=== PATIENT | male | born 1985 | race Two or more races ===

== ENCOUNTER 2020-09-26 20:29 | Emergency (ER) | payer OTHER, SELFPAY ==
--- NOTE | 2020-09-26 | ECG_ITS ---
Test Reason : CP Blood Pressure : / mmHG Vent. Rate : 075 BPM Atrial Rate : 075 BPM P-R Int : 144 ms QRS Dur : 092 ms QT Int : 356 ms P-R-T Axes : 055 069 038 degrees QTc Int : 397 ms Normal sinus rhythm Normal ECG When compared with ECG of 16-NOV-2017 17:56, No significant change was found Referred By: Generic ED Physician Electronically Signed By:SERINA ALCALA MD
--- NOTE | ~2020-09-26 | XR_ITS ---
EXAMINATION: PORTABLE CHEST 1 VIEW CLINICAL INFORMATION: DYSPNEA . COMPARISON: No recent pertinent prior studies are available for comparison. TECHNIQUE: Portable frontal view of the chest was obtained. FINDINGS: The lungs are mildly hypoexpanded. No focal infiltrate, effusion, edema, or pneumothorax. Cardiac and mediastinal silhouettes are within normal limits for technique. No acute bony abnormality seen. XR/XR chest 1V IMPRESSION: No evidence of acute disease.
[2020-09-26 21:34] VITALS: BP 123/66; PULSE 70; RESP 18; TEMP 36.8; O2SAT 96; BMI 54.2
[2020-09-26 21:39] VITALS: BMI 47.2
[2020-09-26 23:01] LABS: Basophils Absolute Auto 0.1 X10*3/uL (0.0-0.2); Basophils Percent Auto 0.5 % (0-2); Eosinophils Absolute Auto 0.5 X10*3/uL (0.0-0.4); Eosinophils Percent Auto 3.6 % (0-4); Hematocrit 36.4 % (42-52); Hemoglobin 11.4 g/dl (14.0-18.0); Imm Gran Abs Auto 0.06 X10*3/uL (0.00-0.03); Imm Gran Pct Auto 0.5 % (0.0-0.4); Lymphocytes Percent Auto 48.4 % (20-40); MANUAL DIFF FLAG SCAN; Mean Corpuscular HGB Conc 31.3 g/dl (31.0-36.0); Mean Corpuscular Hemoglobin 20.1 pg (27.0-33.0); Mean Platelet Volume 11.1 fL (9.4-12.4); Monocytes Absolute Auto 1.2 X10*3/uL (0.1-1.2); Monocytes Percent Auto 9.4 % (2-11); Neutrophils Absolute Auto 4.7 X10*3/uL (2.0-8.3); Neutrophils Percent Auto 37.6 % (45-73); Platelet Count 312 X10*3/uL (160-400); Red Blood Count 5.67 X10*6/uL (4.60-5.80); Red Cell Distribution Width 18.7 % (11.0-16.0); SCAN SMEAR FLAG 1; White Blood Count 12.4 X10*3/uL (4.8-10.8)
[2020-09-26 23:25] LABS: Anion Gap 14 (12-20); Blood Urea Nitrogen 7 mg/dL (9-16); Calcium 9.7 mg/dL (8.4-10.2); Carbon Dioxide 24 mmol/L (22-29); Chloride 108 mmol/L (96-108); Creatinine Clr Calc Pharmacy 187.8; Estimated Glomerular Filt Rate > 60; Glucose Random 106 mg/dL (60-115); Potassium 4.2 mmol/L (3.3-5.1); Sodium 142 mmol/L (135-145)
[2020-09-26 23:30] LABS: Mean Corpuscular Volume 64.2 fL (80-98)
[2020-09-26 23:35] LABS: B Type Natriuretic Peptide 11 pg/mL (<100); Troponin-I High Sensitivity < 3.5 ng/L (<3.5-35.0)
[2020-09-26 23:51] LABS: SLIDE REVIEW VERIFIED
[2020-09-27 02:27] VITALS: BP 126/65; PULSE 65; RESP 19; O2SAT 97
--- NOTE | 2020-09-27 02:31 | ED_ITS ---
HPI - SOB/Dyspnea General Chief Complaint: Dyspnea Stated Complaint: cp,Sob Time Seen by Provider: 09/27/20 02:31 Source: patient Mode of arrival: ambulatory History of Present Illness HPI Narrative: 34-year-old male without significant past medical history presents with sharp chest pain radiates in to left neck and shoulder the patient states has resolved accompanied by shortness of breath without any history of asthma. Otherwise, he denies any fever, chills, nausea, vomiting, abdominal pain, and symptoms. Related Data Allergies Allergy/AdvReac Type Severity Reaction Status Date / Time ibuprofen [From MOTRIN] Allergy Unknown HIVES Verified 09/26/20 21:31 Review of Systems Review of Systems: Pertinent positives and negatives as stated in HPI 10 point review systems otherwise negative. PMFSH Past Medical History Source: nursing notes reviewed Medical History No known health problems Social History Social History Advance Directives: No Advance Directives Information Provided: No Physical Exam Vital Signs: Vital Signs: Last Vital Signs Temp 98.3 F 09/26/20 21:34 Pulse 65 09/27/20 02:27 Resp 19 09/27/20 02:27 BP 126/65 09/27/20 02:27 Pulse Ox 97 09/27/20 02:27 Body Mass Index 47.2 VITAL SIGNS: Reviewed. GENERAL: Well developed, well nourished, in no acute distress. HEAD: Normocephalic/atraumatic EYES: PERRLA, EOMI NOSE: Nares patent bilateral OROPHARYNX: no oral lesions noted, posterior pharynx clear NECK: Supple, no adenopathy LUNGS: Normal breath sounds. No adventitious sounds or accessory muscle use. SpO2<97> CARDIOVASCULAR: Regular rate and rhythm without noted murmurs ABDOMEN: Soft, non-tender, non-distended with bowel sounds. NEUROLOGIC: Alert and oriented x 4. Course Course Course Narrative: This is a 34-year-old male with history and clinical presentation suggestive of possible costochondritis/musculoskeletal etiology given the quality of the pain low suspicion for PE or pneumonia given the absence of fevers. On review of all investigations there are no acute findings other than a lymphocytosis. Patient informed of all findings and instructed to follow-up with his primary care provider for further evaluation. MDM - SOB/Dyspnea Lab Data Result diagrams: 09/26/20 22:42 09/26/20 22:42 Labs: Lab Results 09/26/20 09/26/20 09/26/20 Range/Units 22:42 22:42 22:42 WBC 12.4 H (4.8-10.8) X10*3/uL RBC 5.67 (4.60-5.80) X10*6/uL Hgb 11.4 L (14.0-18.0) g/dl Hct 36.4 L (42-52) % MCV 64.2 L (80-98) fL MCH 20.1 L (27.0-33.0) pg MCHC 31.3 (31.0-36.0) g/dl RDW 18.7 H (11.0-16.0) % Plt Count 312 (160-400) X10*3/uL MPV 11.1 (9.4-12.4) fL Immature Gran % (Auto) 0.5 H (0.0-0.4) % Neut % (Auto) 37.6 L (45-73) % Lymph % (Auto) 48.4 H (20-40) % [place] % (Auto) 9.4 (2-11) % Eos % (Auto) 3.6 (0-4) % Baso % (Auto) 0.5 (0-2) % Lymph # (Auto) 6.0 H (1.2-4.9) X10*3/uL [place] # (Auto) 1.2 (0.1-1.2) X10*3/uL Eos # (Auto) 0.5 H (0.0-0.4) X10*3/uL Baso # (Auto) 0.1 (0.0-0.2) X10*3/uL Abs Immat Gran (auto) 0.06 H (0.00-0.03) X10*3/uL Absolute Neuts (auto) 4.7 (2.0-8.3) X10*3/uL Absolute Nucleated RBC 0.000 (0.0-0.012) X10*3/uL Nucleated RBC % (auto) 0.0 (0.0-0.2) /100WBC Smear Tech's Comments VERIFIED D-Dimer < 200 NG/ML Hold Blue Top SEE NOTE Sodium 142 (135-145) mmol/L Potassium 4.2 (3.3-5.1) mmol/L Chloride 108 (96-108) mmol/L Carbon Dioxide 24 (22-29) mmol/L Anion Gap 14 (12-20) BUN 7 L (9-16) mg/dL Creatinine 0.86 (0.5-1.4) mg/dL Estim Creat Clear Calc 187.8 Estimated GFR > 60 Random Glucose 106 (60-115) mg/dL Calcium 9.7 (8.4-10.2) mg/dL Troponin I High Sens (<3.5-35.0) ng/L B-Natriuretic Peptide (<100) pg/mL COVID-19 ([facility]) (Negative) COVID-19 Clin Com 09/26/20 09/27/20 Range/Units 22:42 02:44 WBC (4.8-10.8) X10*3/uL RBC (4.60-5.80) X10*6/uL Hgb (14.0-18.0) g/dl Hct (42-52) % MCV (80-98) fL MCH (27.0-33.0) pg MCHC (31.0-36.0) g/dl RDW (11.0-16.0) % Plt Count (160-400) X10*3/uL MPV (9.4-12.4) fL Immature Gran % (Auto) (0.0-0.4) % Neut % (Auto) (45-73) % Lymph % (Auto) (20-40) % [place] % (Auto) (2-11) % Eos % (Auto) (0-4) % Baso % (Auto) (0-2) % Lymph # (Auto) (1.2-4.9) X10*3/uL [place] # (Auto) (0.1-1.2) X10*3/uL Eos # (Auto) (0.0-0.4) X10*3/uL Baso # (Auto) (0.0-0.2) X10*3/uL Abs Immat Gran (auto) (0.00-0.03) X10*3/uL Absolute Neuts (auto) (2.0-8.3) X10*3/uL Absolute Nucleated RBC (0.0-0.012) X10*3/uL Nucleated RBC % (auto) (0.0-0.2) /100WBC Smear Tech's Comments D-Dimer NG/ML Hold Blue Top Sodium (135-145) mmol/L Potassium (3.3-5.1) mmol/L Chloride (96-108) mmol/L Carbon Dioxide (22-29) mmol/L Anion Gap (12-20) BUN (9-16) mg/dL Creatinine (0.5-1.4) mg/dL Estim Creat Clear Calc Estimated GFR Random Glucose (60-115) mg/dL Calcium (8.4-10.2) mg/dL Troponin I High Sens < 3.5 (<3.5-35.0) ng/L B-Natriuretic Peptide 11 (<100) pg/mL COVID-19 ([facility]) Negative (Negative) COVID-19 Clin Com See Note Discharge Plan Discharge Clinical Impression: Atypical chest pain Patient Disposition: Home, Self-Care Instructions: Chest Wall Pain (ED) Additional Instructions: Please follow-up with your primary care provider in the next 2-3 days for further outpatient evaluation and assessment. Return to the emergency department if you develop any worsening of your symptoms. Referrals: Physician,Unknown [Primary Care Provider] - 2 days
[2020-09-27 03:01] LABS: D Dimer < 200 NG/ML
[2020-09-27 03:04] LABS: COVID-19 Test Negative (Negative); IDNOW Serial# 9DD0AD1C
[2020-09-27] MEDS: Albuterol Sulfate 90 MCG 8 GM INHALER 4 PUFF INHALE (04:20)
[2020-09-27 04:22] VITALS: PULSE 56; O2SAT 97
[2020-09-27] MEDS: Lidocaine HCl Viscous 2 % 15 ML SOLUTION 10 ML MUCOUS MEM (04:41)
[2020-09-27] MEDS: Magnesium Hydrox/Alum Hydrox 30 ML ORAL.SUSP PO (04:42)
== END 2020-09-27 05:00 | disposition home or self-care (01) ==
PROVIDERS: Emergency Provider Student in an Organized Health Care Education/Training Program
DX: R07.89 Other chest pain (principal); Z20.822 Contact with and (suspected) exposure to COVID-19
CPT/HCPCS: 36415; 71045; 80048; 83880; 84484; 85025; 85379; 87635; 93005; 94664; 99284

== ENCOUNTER 2021-12-27 16:57 | Emergency (ER) | payer BC, OTHER, SELFPAY ==
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
[2021-12-27 19:39] VITALS: BP 148/80; PULSE 86; RESP 18; TEMP 36.5; O2SAT 100; BMI 47.5
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
[2021-12-27 21:20] VITALS: BP 140/91; PULSE 88; RESP 18; TEMP 36.7; O2SAT 97
[2021-12-27] MEDS: oxyCODONE HCl Immed Release 5 MG TABLET PO (21:27)
[2021-12-27] MEDS: Acetaminophen 325 MG TABLET 975 MG PO (21:27)
[2021-12-27] MEDS: Diphth,Pertus(ACell),Tet Adult 0.5 ML SYRINGE IM (21:28)
[2021-12-27] MEDS: Bacitracin Oint 14 GM TUBE 1 APPL TOPICAL (21:31)
== END 2021-12-27 21:32 | disposition home or self-care (01) ==
PROVIDERS: Emergency Provider Emergency Medicine
DX: S50.812A Abrasion of left forearm, initial encounter (principal); S70.312A Abrasion, left thigh, initial encounter; V29.40XA Motorcycle driver injured in collision with unspecified motor vehicles in traffic accident, initial encounter; Y93.9 Activity, unspecified; Y92.410 Unspecified street and highway as the place of occurrence of the external cause; Y99.9 Unspecified external cause status
CPT/HCPCS: 73060; 73090; 90471; 90715; 99283

== ENCOUNTER → 2023-08-08 10:20 | Outpatient (BNVA) | payer SELFPAY | PROVIDERS: PCP Physician Assistant ==

== ENCOUNTER 2023-10-10 13:24 | Outpatient (AMB) | payer OTHER, BC, SELFPAY ==
[2023-10-10 13:28] VITALS: BP 118/68; PULSE 73; O2SAT 98; BMI 42.4
--- NOTE | 2023-10-10 13:28 | MHC.PC.OV ---
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 Transferring care from [facility]. Medical records have been requested today. 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 Previously was seen at [facility]. He has a past medical history significant for obstructive sleep apnea, migraines, obesity. HAS MULTIPLE COMPLAINTS TODAY .. Obstructive sleep apnea: He does have a CPAP machine though does not use it due to mask irritation. He reports he continues to have trouble sleeping .. Obesity: He reports he has gained a lot of weight due to overeating secondary to his depression and anxiety. He reports he is going through some personal issues that have caused him a lot more anxiety and depression per has not interested in medication for his mental health. .. GERD: Reports he has been having lot of GERD even wake him up in the night with burning in his chest. Has used omeprazole in the past though it was not effective. He is interested in liquid form of medication to help him as he not interested in pills. ,, Lumbar radiculopathy: He does report 2019 having work-related injury injuring his back. He does report getting physical therapy and x-rays at the time reports normal findings. He can not recall physical therapy helping at all. He does not take any NSAIDs or Tylenol for his pain. .. Generalized anxiety disorder/ major depressive disorder: He does suffer from anxiety and depression which has been existing condition for him for quite awhile. He does report going through some personal issues and some marital problems. He does report eating as a coping mechanism which has caused him to gain weight. .. Migraines: He reports he continues to suffer from migraines that are fairly debilitating. He reports he has tried sumatriptan in the past without significant relief. He does report getting CT and MRIs of his head in the past without any masses found.. He migraines are triggered by loud noises, perfumes and stress. 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 1. Little interest or pleasure in doing things: nearly every day 2. Feeling down, depressed, or hopeless: nearly every day 3. Trouble falling or staying asleep, or sleeping too much: nearly every day 4. Feeling tired or having little energy: nearly every day 5. Poor appetite or overeating: nearly every day 6. Feeling bad about yourself - or that you are a failure or have let yourself or your family down: nearly every day 7. Trouble concentrating on things, such as reading the newspaper or watching television: nearly every day 8. Moving or speaking so slowly that other people could have noticed. Or the opposite - being so fidgety or restless that you have been moving around a lot more than usual: nearly every day 9. Thoughts that you would be better off or of hurting yourself in some way: not at all Total score: 24 Depression Screening Interpretation: Positive Depression Screening Follow-up: Existing condition and Follow-up Visit Requested Depression Screening Done: Yes 91954 - PHQ-9 Billing: Yes Source: Developed by Drs. Chetan Arzola, Mo Rosenbaum and colleagues, with an educational gerber from [employer]. Thrive Questionnaire Date Thrive assessed: 10/10/23 I am a: Patient What is your living situation today?: I have a steady place to live Within the past 12 months, did the food you bought not last and you didn't have the money to get more?: Never true Within the past 12 months, did you worry whether your food would run out before you got money to buy more?: Never true Do you have trouble paying for medicines?: No Do you have trouble getting transportation to medical appointments?: No Do you have trouble paying your heating and electricity bill?: No Do you have trouble taking care of your child, family member or friend?: No Do you have trouble with day-to-day activities such as bathing, preparing meals, shopping, managing finances, etc.?: No Are you currently unemployed and looking for a job?: No Are you interested in more education?: No Please select the resources that you would like help with: None THRIVE Score: 0 AUDIT C Alcohol Use Questionnaire (AUDIT-C) 1. How often do you have a drink containing alcohol?: Never Total Score: 0 PAULETTE-7 AMB Questionnaire PAULETTE-7 Date PAULETTE - 7 assessed: 10/10/23 Feeling nervous, anxious, or on edge: 3 = Nearly every day Not being able to stop or control worryin = Nearly every day Worrying too much about different things: 3 = Nearly every day Trouble relaxin = Nearly every day Being so restless that it is hard to sit still: 3 = Nearly every day Becoming easily annoyed or irritable: 3 = Nearly every day Feeling afraid as if something awful might happen: 2 = More than half the days Total PAULETTE-7 score (0-4 normal; 5-9 mild; 10-14 moderate; 15-21 severe): 20 Source: Developed by Drs. Chetan Arzola, Mo Rosenbaum and colleagues, with an educational gerber from [employer]. PAULETTE-7 Assessment Billing PAULETTE-7 Assessment Tool: PAULETTE-7 Assessment 00528 Review of Systems Const Reports headache(s) Eyes Reports loss of vision ENT Denies vertigo, Denies dizziness, Reports headache(s) and Denies sore throat Card Denies chest pain, Denies leg edema and Denies lightheadedness Resp Denies cough, Denies hemoptysis and Denies wheezing GI Reports abdominal pain, Denies melena, Reports bloating, Denies constipation, Reports dyspepsia, Reports heartburn, Denies diarrhea and Denies vomiting Denies dysuria, Denies urinary frequency and Denies urinary urgency Musc Reports back pain, Denies arthralgias, Denies joint swelling, Denies numbness and Denies tingling Neuro Denies Abnormal speech present, Denies behavioral changes, Denies vertigo, Denies dizziness, Reports headache(s), Reports loss of vision, Denies memory loss, Denies numbness and Denies tingling Psych Denies anxiety, Denies behavioral changes, Denies depression, Denies memory loss and Denies panic attacks Gasper/Lymph Denies easy bleeding and Denies easy bruising Aller/Immun Denies wheezing Physical exam (Primary Care) Vital Signs: Last Vital Signs Pulse 73 10/10/23 13:28 BP 118/68 10/10/23 13:28 Pulse Ox 98 10/10/23 13:28 Oxygen Delivery Method Room Air 10/10/23 13:28 BMI result Body Mass Index 42.4 Tobacco/Smoking Status: Tobacco use Status Tobacco use date assessed 10/10/23 10/10/23 13:40 Patient Tobacco Use Status Never used Tobacco 10/10/23 13:40 e-Cigarette/Vaping Use Currently Using 10/10/23 13:40 PHQ-9: PHQ-9 Score PHQ-9: Total score 10/10/23 13:40 Depression Screening Interpretation: Positive Depression Screening Follow-up: Existing condition and Follow-up Visit Requested Thrive Assessment: Date of Thrive Assessment Date Thrive assessed 10/10/23 10/10/23 13:40 Const General: healthy appearing, no acute distress, alert and awake Nutritional Appearance: well nourished Orientation/consciousness: oriented to person, oriented to place and oriented to time HENMT Ears: TM's normal bilaterally General nose exam: Normal nasal mucous membranes and turbinates present Eyes Conjunctivae: conjunctivae normal Sclerae: sclerae normal Pupils: Equal, round and reactive pupils present Neck Neck: Yes no lymphadenopathy and Yes no JVD Thyroid: Thyroid normal Carotids: no bruits Resp Effort & Inspection: normal respiratory effort and not tachypneic Auscultation: no crackles, no rales, no rhonchi and no wheezes Cardio Rate: regular rate Rhythm: regular rhythm Heart sounds: no murmurs and normal S1 and S2 GI Palpation (GI): Soft to palpation, nontender, no hepatomegaly and no splenomegaly Auscultation: normal bowel sounds Skin General skin exam: no rashes or lesions noted and dry skin Neuro General: oriented to person, oriented to place and oriented to time Cranial nerves: Yes Equal, round and reactive pupils present Speech: No Abnormal speech present Gait exam (Neuro): Normal gait present Motor exam (neuro): no tremor noted Extrem Right upper extremity: full ROM Left upper extremity: full ROM Right lower extremity: full ROM; no edema Left lower extremity: full ROM; no edema Psych Mental Status: mental status grossly normal Speech and movement: Normal speech and movement present Affect: normal affect Attitude: cooperative Thought process: Normal thought process present Assessment and Plan Assessment & Plan (1) Obese: Code(s): E66.9 - Obesity, unspecified Qualifiers: Obesity type: due to excess calories Obesity classification: adult class 3 (BMI >= 40) Serious obesity comorbidity presence: without serious comorbidity Body mass index: BMI 40.0-44.9 Qualified Code(s): E66.01 - Morbid (severe) obesity due to excess calories; Z68.41 - Body mass index [BMI] 40.0-44.9, adult Plan: He does understand his BMI is over 40 will work on being more physically active and adapting to better eating habits to reduce his weight. (2) Screening for diabetes mellitus (DM): Code(s): Z13.1 - Encounter for screening for diabetes mellitus (3) Exposure to respiratory irritant: Code(s): Z77.9 - Other contact with and (suspected) exposures hazardous to health Plan: He does report that his job he is exposed to respiratory irritants and he has not been fitted for respiratory mask as of yet. He is interested in getting a chest x-ray as he does report some shortness of breath at times. (4) EDWINA (obstructive sleep apnea): Code(s): G47.33 - Obstructive sleep apnea (adult) (pediatric) Plan: Does have a history of obstructive sleep apnea and he relates this to his weight. Does have a CPAP machine that he has not used due to mask issues. He is willing to try a nasal mask. I explained to him that a uncontrolled obstructive sleep apnea may be causing his worsening in his migraine frequency and severity. (5) Migraine: Code(s): G43.909 - Migraine, unspecified, not intractable, without status migrainosus Qualifiers: Migraine type: unspecified Status migrainosus presence: without status migrainosus Intractability: not intractable Qualified Code(s): G43.909 - Migraine, unspecified, not intractable, without status migrainosus Plan: As per HPI patient is willing to try vitamin B2 and magnesium to help migraine frequency. Will try rizatriptan on an as needed basis for migraine . Will refer to Neurology for further evaluation and treatment. (6) Lumbar radiculopathy: Code(s): M54.16 - Radiculopathy, lumbar region Plan: Patient does report intermittent lumbar radiculopathy down left lower extremity. Will likely benefit from physical therapy will will consider MRI of lumbar spine to evaluate disc herniation. (7) GERD (gastroesophageal reflux disease): Code(s): K21.9 - Gastro-esophageal reflux disease without esophagitis Qualifiers: Esophagitis presence: without esophagitis Qualified Code(s): K21.9 - Gastro-esophageal reflux disease without esophagitis Plan: He reports worsening GERD symptoms. Has used omeprazole in the past though was not effective. Given sample of VOQUENZA 20 mg today in office to try. Also will give Carafate liquid to use on a as needed basis. Again advised on low GI irritant foods. (8) PAULETTE (generalized anxiety disorder): Code(s): F41.1 - Generalized anxiety disorder Plan: Patient's PAULETTE-7 score positive for pretty severe anxiety. He has not interested in mental health medications at this time. He is willing to start mental health therapy. Orders: Orders PT Evaluation and Treatment Today M51.9 - Unspecified thoracic, thoracolumbar and lumbosacral intervertebral disc disorder, M54.16 - Radiculopathy, lumbar region Comprehensive Bieber. Panel Fast Today Z13.1 - Encounter for screening for diabetes mellitus XR chest 2V Today Z77.9 - Other contact with and (suspected) exposures hazardous to health Complete Blood Count no Diff Today K21.9 - Gastro-esophageal reflux disease without esophagitis TSH reflex Free T4 Today E66.01 - Morbid (severe) obesity due to excess calories, Z68.41 - Body mass index [BMI] 40.0-44.9, adult Referrals Neurology Referral G43.909 - Migraine, unspecified, not intractable, without status migrainosus [employer] Professor Nutrition Referral E66.01 - Morbid (severe) obesity due to excess calories, Z68.41 - Body mass index [BMI] 40.0-44.9, adult Counseling Referral F41.1 - Generalized anxiety disorder Medications: New sucralfate (Carafate) swish in mouth and swallow; use after food/drink 10 mL PO TID 30 days 900 mL 0RF K21.9 - Gastro-esophageal reflux disease without esophagitis riboflavin (vitamin B2) 50 mg PO DAILY 30 days 30 tabs 3RF G43.909 - Migraine, unspecified, not intractable, without status migrainosus, R51.9 - Headache, unspecified miscellaneous medical supply 1 ea miscellaneous .nightly 99 days 1 ea 0RF G47.33 - Obstructive sleep apnea (adult) (pediatric) rizatriptan take 1 tab at onset of headache; if no relief may repeat 1 tab after at least 2 hrs; max = 3 tabs/24 hr PO 30 days 9 tabs 2RF G43.909 - Migraine, unspecified, not intractable, without status migrainosus magnesium oxide 250 mg PO BID 30 days 60 tabs 3RF G43.909 - Migraine, unspecified, not intractable, without status migrainosus, R51.9 - Headache, unspecified Coding Level of Care Code New Pt Level 4 (25281) Diagnoses Class 3 severe obesity due to excess calories without serious comorbidity with body mass index (BMI) of 40.0 to 44.9 in adult E66.01; Z68.41 Obesity type: due to excess calories Obesity classification: adult class 3 (BMI >= 40) Serious obesity comorbidity presence: without serious comorbidity Body mass index: BMI 40.0-44.9 Screening for diabetes mellitus (DM) Z13.1 Exposure to respiratory irritant Z77.9 EDWINA (obstructive sleep apnea) G47.33 Migraine without status migrainosus, not intractable, unspecified migraine type G43.909 Migraine type: unspecified Status migrainosus presence: without status migrainosus Intractability: not intractable Lumbar radiculopathy M54.16 Gastroesophageal reflux disease without esophagitis K21.9 Esophagitis presence: without esophagitis PAULETTE (generalized anxiety disorder) F41.1 Additional Codes PAULTETE-7 Assessment Billing - PAULETTE-7 Assessment Tool: PAULETTE-7 Assessment [id number] ([id number])
== END 2023-10-10 14:26 | disposition home or self-care (01) ==
PROVIDERS: PCP Physician Assistant; Visit Provider Physician Assistant
DX: G43.909 Migraine, unspecified, not intractable, without status migrainosus (principal); G47.33 Obstructive sleep apnea (adult) (pediatric); E66.01 Morbid (severe) obesity due to excess calories; Z68.41 Body mass index [BMI] 40.0-44.9, adult; M54.16 Radiculopathy, lumbar region; K21.9 Gastro-esophageal reflux disease without esophagitis; F41.1 Generalized anxiety disorder
CPT/HCPCS: 99204

== ENCOUNTER 2024-09-24 11:27 | Outpatient (AMB) | payer OTHER, SELFPAY ==
--- NOTE | 2024-09-24 11:36 | A.OFFPC_ITS ---
Vital Signs 09/24/24 11:37 Height 5 ft 10 in Weight 310 lb 6 oz BMI 44.5 BP 102/76 Blood Pressure Location Lt brachial Position Sitting Pulse 82 Pulse Source Pulse Oximeter Temp 97 F Temp Source Temporal Artery Scan Oxygen Delivery Method Room Air Intake Visit Reasons: PE Annual Allergies ibuprofen [From MOTRIN] Allergy (Unknown, Verified 09/24/24 15:13) HIVES Medication List - Last Reconciled 09/24/24 by Aaron Caballero PA-C magnesium oxide 250 mg PO BID 30 days miscellaneous medical supply 1 ea miscellaneous .nightly 99 days riboflavin (vitamin B2) 50 mg PO DAILY 30 days rizatriptan take 1 tab at onset of headache; if no relief may repeat 1 tab after at least 2 hrs; max = 3 tabs/24 hr PO 30 days sucralfate (Carafate) 10 mL PO TID 30 days Tobacco use date assessed: 10/10/23 Dental Screening Dental Screen Date: 10/10/23 HPI PE Annual HPI Details Patient is a 38-year-old male here today for an annual physical. He has a past medical history significant for obstructive sleep apnea, migraines, obesity. HAS MULTIPLE COMPLAINTS TODAY .. Obstructive sleep apnea: Patient has a history of obstructive sleep apnea though has not been using a CPAP machine as he feels that he is sleeping well without breathing issue. Most of his sleeping issue is related to his anxiety as he feels he has racing thoughts at night. He has been using medicinal marijuana to help him with his anxiety. .. Class 3 obesity: Patient has gained weight since last office visit today's BMI at 44. Reports he has been more physically active though diet has been a problem for him. He is interested in getting a gym membership locally to try to get more physically active. He is considering seeing a dietitian. .. GERD: Reports he has been having lot of GERD even wake him up in the night with burning in his chest. Has used omeprazole in the past though it was not effective. He has tried liquid forms of antiacid medication though does not feel they are too effective either ,, Lumbar radiculopathy: He does report 2019 having work-related injury injuring his back. He does report getting physical therapy and x-rays at the time reports normal findings. He can not recall physical therapy helping at all. He does not take any NSAIDs or Tylenol for his pain. .. Generalized anxiety disorder/ major depressive disorder: Currently not interested in any antidepressant medication as he is not interested in pills. He does use medicinal marijuana to help him with has mental health which has been effective for him. .. Migraines: He reports he continues to suffer from migraines that are fairly debilitating. He reports he has tried sumatriptan in the past without significant relief. He does report getting CT and MRIs of his head in the past without any masses found.. He has upcoming appointment with Neurology today to discuss his migraines. Vaccines: Up-to-date with tetanus , declins flu and COVID [facility] Medical History No known health problems Family History Mother Breast cancer Chronic migraine with aura Social History Housing: House Alcohol intake: never Patient Tobacco Use Status: Never used Tobacco e-Cigarette/Vaping Use: Currently Using Substance Use Type: Marijuana service: No Current occupational status: unemployed Cognitive needs: No Hearing needs: No Vision needs: No Questionnaire PHQ-9 Over the last 2 weeks, how often have you been bothered by any of the following problems? 1. Little interest or pleasure in doing things: not at all 2. Feeling down, depressed, or hopeless: not at all 3. Trouble falling or staying asleep, or sleeping too much: not at all 4. Feeling tired or having little energy: not at all 5. Poor appetite or overeating: not at all 6. Feeling bad about yourself - or that you are a failure or have let yourself or your family down: not at all 7. Trouble concentrating on things, such as reading the newspaper or watching television: not at all 8. Moving or speaking so slowly that other people could have noticed. Or the opposite - being so fidgety or restless that you have been moving around a lot more than usual: not at all 9. Thoughts that you would be better off or of hurting yourself in some way: not at all Total score: 0 Depression Screening Interpretation: Negative Depression Screening Done: Yes 58174 - PHQ-9 Billing: Yes Source: Developed by Drs. Chetan Arzola, Shanae Hagen, Mo Good and colleagues, with an educational gerber from [employer]. Thrive Questionnaire Date Thrive assessed: 09/24/24 I am a: Patient What is your living situation today?: I have a steady place to live Within the past 12 months, did the food you bought not last and you didn't have the money to get more?: Sometimes True Within the past 12 months, did you worry whether your food would run out before you got money to buy more?: Sometimes True Do you have trouble paying for medicines?: Yes Do you have trouble getting transportation to medical appointments?: No Do you have trouble paying your heating and electricity bill?: I choose not to answer this question Do you have trouble taking care of your child, family member or friend?: I choose not to answer this question Do you have trouble with day-to-day activities such as bathing, preparing meals, shopping, managing finances, etc.?: No Are you currently unemployed and looking for a job?: No Are you interested in more education?: No Please select the resources that you would like help with: None Currently or been in a relationship where the following occur: No concerns reported THRIVE Score: 2 AUDIT C Alcohol Use Questionnaire (AUDIT-C) 1. How often do you have a drink containing alcohol?: Never 3. How often do you have six or more drinks on one occasion?: Never Total Score: 0 PAULETTE-7 AMB Questionnaire PAULETTE-7 Date PAULETTE - 7 assessed: 09/24/24 Feeling nervous, anxious, or on edge: 0 = Not at all Not being able to stop or control worryin = Not at all Worrying too much about different things: 0 = Not at all Trouble relaxin = Not at all Being so restless that it is hard to sit still: 0 = Not at all Becoming easily annoyed or irritable: 0 = Not at all Feeling afraid as if something awful might happen: 0 = Not at all Total PAULETTE-7 score (0-4 normal; 5-9 mild; 10-14 moderate; 15-21 severe): 0 Source: Developed by Shanae Mauro Kurt Kroenke and colleagues, with an educational gerber from [employer]. PAULETTE-7 Assessment Billing PAULETTE-7 Assessment Tool: PAULETTE-7 Assessment 81498 Review of Systems Const Denies body aches, Denies chills, Denies excessive sweating, Denies fatigue, Denies fever(s) and Reports headache(s) Eyes Denies blurry vision ENT Denies dysphagia, Denies vertigo, Denies dizziness, Reports headache(s), Denies hearing loss and Denies tinnitus Card Denies chest pain, Denies chest pain with activity, Denies syncope, Denies irregular heart rhythm and Denies dyspnea Resp Denies chest congestion, Denies cough, Denies hemoptysis, Denies dyspnea and Denies wheezing GI Denies abdominal pain, Denies melena, Denies hematochezia, Denies coffee ground emesis, Denies dysphagia, Denies diarrhea, Denies nausea and Denies vomiting Denies difficulty urinating, Denies dysuria, Denies urinary frequency, Denies urinary hesitancy and Denies urinary urgency Musc Denies arthralgias, Denies limited range of motion, Denies muscle cramps and Denies muscle weakness Skin/Breast Denies rash and Denies skin ulcer Neuro Denies Abnormal speech present, Denies confusion, Denies vertigo, Denies dizziness, Denies syncope, Reports headache(s), Denies memory loss and Denies seizure-like activity Psych Denies anxiety, Denies confusion, Denies depression, Denies memory loss, Denies panic attacks and Denies paranoia Endo Denies excessive sweating, Denies fatigue, Denies flushing, Denies polydipsia and Denies polyuria Aller/Immun Denies wheezing Physical exam (Primary Care) Vital Signs: Last Vital Signs Temp 97 F 09/24/24 11:37 Pulse 82 09/24/24 11:37 BP 102/76 09/24/24 11:37 Oxygen Delivery Method Room Air 09/24/24 11:37 BMI result Body Mass Index 44.5 BMI Assessment/Plan discussion: High BMI High, discussed plan: lifestyle, weight reduction, dietary and physical activity Tobacco/Smoking Status: Tobacco use Status Tobacco use date assessed 10/10/23 09/24/24 11:41 Patient Tobacco Use Status Never used Tobacco 09/24/24 11:57 e-Cigarette/Vaping Use Currently Using 09/24/24 11:57 PHQ-9: PHQ-9 Score PHQ-9: Total score 0 09/24/24 12:00 Depression Screening Interpretation: Negative Thrive Assessment: Date of Thrive Assessment Date Thrive assessed 09/24/24 09/24/24 11:41 Currently or been in a relationship where the following occur: No concerns reported Const Other: OBESE General: cooperative, comfortable, no acute distress, alert and awake; No confusion Orientation/consciousness: oriented to person, oriented to place, patient oriented x3 and No confusion HENMT Head: Yes normocephalic Ears: external ears normal and TM's normal bilaterally Face and sinus: No sinus tenderness Mouth: Normal oral and palatal mucosa present and tongue normal Teeth and gingiva: dentition normal and gingiva normal Throat: Yes posterior oropharynx normal, Yes tonsils normal and Yes uvula midline Eyes Conjunctivae: conjunctivae normal Sclerae: sclerae normal Pupils: Equal, round and reactive pupils present EOM: EOMs intact bilaterally Direct Ophthalmoscopy: No no photophobia Neck Neck: Yes no lymphadenopathy, No tender and Yes no JVD Thyroid: Thyroid normal Carotids: no bruits Chest Chest palpation & inspection: no tenderness Resp Effort & Inspection: normal respiratory effort, no audible wheezes, not labored and no stridor Auscultation: no crackles, no rales, no rhonchi and no wheezes Cardio Jugular venous distension: no JVD Rate: regular rate, not bradycardic and not tachycardic Rhythm: regular rhythm Bruits: no carotid bruits Peripheral pulses: Peripheral pulses 2+ throughout GI Inspection: Yes normal to inspection, No abdominal wall ecchymosis and No visible herniation Palpation (GI): Soft to palpation, nontender, no guarding, not rigid and No hepatosplenomegaly present Auscultation: normoactive bowel sounds General: Yes no CVA tenderness Back/Spine/Pelvis Back: no CVA tenderness and No back tenderness Cervical Spine: cervical ROM normal Thoracic/Lumbar Spine: thoracic and lumbar spine normal to inspection, straight leg raise negative bilaterally, No thoraco-lumbar ROM limited and No lumbar spinal tenderness Skin Lesions: no lesions Rashes: no rashes Wounds: no wounds Neuro General: oriented to person, oriented to place, patient oriented x3, CN's II-XI intact bilaterally and No confusion Cranial nerves: Yes Equal, round and reactive pupils present and Yes Normal accommodation reflex present Cognition (Neuro): normal cognition Speech: No Abnormal speech present Gait exam (Neuro): Normal gait present Motor exam (neuro): 5/5 motor strength present throughout Extrem Right upper extremity: full ROM; no cyanosis Left upper extremity: full ROM; no cyanosis Right lower extremity: no edema Left lower extremity: no edema Psych Appearance: grossly normal Mental Status: mental status grossly normal Affect: normal affect Attitude: cooperative Thought process: Normal thought process present Coding Level of Care Code Est Pt Prev Care 18-39y([id number]) Diagnoses Annual physical exam Z00.00 EDWINA (obstructive sleep apnea) G47.33 Lumbar radiculopathy M54.16 Class 3 obesity E66.813 Additional Codes PAULETTE-7 Assessment Billing - PAULETTE-7 Assessment Tool: PAULETTE-7 Assessment 87608 ([id number]) PHQ-9 - 57048 - PHQ-9 Billing: Yes ([id number]) Assessment & Plan Assessment & Plan (1) Annual physical exam: Code(s): Z00.00 - Encounter for general adult medical examination without abnormal findings Category: Medical Plan: As per HPI (2) EDWINA (obstructive sleep apnea): Code(s): G47.33 - Obstructive sleep apnea (adult) (pediatric) Category: Medical Plan: Patient has a history of obstructive sleep apnea though not using a CPAP machine at this time. He feels his breathing issues at night have resolved since being physically active (3) Lumbar radiculopathy: Code(s): M54.16 - Radiculopathy, lumbar region Category: Medical Plan: Patient continues to have lower back pain with radicular symptoms. He is interested in starting physical therapy. Again uses medicinal marijuana for his pain. Not interested in any muscle relaxers or anti-inflammatory in his time. (4) Class 3 obesity: Code(s): E66.813 - Obesity, class 3 Category: Medical Plan: Patient does understand his BMI is over 40 and will work on being more physically active and adapting to better eating habits to reduce his weight. Orders: Orders PT Evaluation and Treatment Today M51.9 - Unspecified thoracic, thoracolumbar and lumbosacral intervertebral disc disorder, M54.16 - Radiculopathy, lumbar region
[2024-09-24 11:37] VITALS: BP 102/76; PULSE 82; TEMP 36.1; BMI 44.5
--- OUTSIDE RECORDS SUMMARY | 2024-09-24 12:10 | XMS_ITS | Data Portability ---
Author Organization KALPESH Gupta s, [address] Address [address] [place] [address] Assessment No assessment recorded. Plan of Treatment Reminders Order Date Submit Date Provider Last Modified By Organization Details Last Modified Time Details Appointments None recorded. Lab urinalysis, dipstick 2023 [email or web address] [address], [address] [place], [address], 11:50:01 culture, urine 2023 024 EDCOUCH [facility] ([facility], [address] [place] [address], [place], [address], 22:05:50 Referral emergency medicine referral 2023 024 [facility], [address] [place], [address], 11:54:38 Procedures None recorded. Surgeries None recorded. Imaging None recorded. Medication Orders Maalox Advanced 200 mg-200 mg-20 mg/5 mL oral suspension 2023 024 [id number], [address] [facility], [place], [address], 4 10:17:43 famotidine 20 mg tablet 2023 024 [facility], [address] [place], [address], 4 10:17:46 Mariza-Mox Antacid-Ant igas 200 mg-200 mg-20 mg/5 mL oral suspension 2023 024 [facility], [address] [place], [address], 4 10:17:43 Lidocaine Viscous 2 % mucosal solution 2023 024 Not available 4 10:17:48 ketorolac 60 mg/2 mL intramuscul ar solution 2022 023 [address], [phone] [place], [address], 4 17:00:33 diphenhydra mine 50 mg/mL injection solution 2022 023 [address], [phone] [place], [address], 4 17:00:26 cyclobenzap rine 10 mg tablet 2022 024 [facility], [phone] [place], [address], 4 17:00:09 Medrol (Noman) 4 mg tablets in a dose pack 2022 024 [facility], [phone] [place], [address], 4 17:00:25 Patient TargetsNo targets recorded. Patient Instructions Encounter Date Encounter Id Patient Instructions Last Modified By Organization Details Last Modified Time 10/16/2022 [id number] MUSCULOSKELETAL PAIN can be managed quite effectively with over the counter medications and home treatments. When suffering from sprains, strains, contusions and other types of very painful but non-dangerous musculoskeletal pain try the following: ? 1. ACETAMINOPHEN 1,000 mg or 6 hours is needed for pain. ? 2. Heat Apply moist heat to affected area 3 times a day for 20 minutes at a time. Do not sleep with a heating pad as it may cause skin mcfadden. ? 3. Topical medication such as Stop Pain feels good to rub on painful areas. Do not apply over broken skin. ? 4. Many musculoskeletal injuries can benefit from gentle stretching or strengthening exercises. 5. Wear a back support brace while working to take the strain of of you back. ? If pain does not improve please see your doctor or [facility] one [facility]. If your symptoms become severe or uncontrolled or if you develop new concerning symptoms please go to the Emergency Department for evaluation and pain control. [email or web address] Not available 10/16/2022 15:19:14 10/14/2023 [id number] gastroesophageal reflux disease (GERD): care instructions [email or web address] Not available 10/14/2023 17:41:58 You were seen to day for acid reflex. Recommendation as below: - Famotidine 20 mg twice a day for 1 week and then twice a day as needed. - Maalox 2-3 table spoon every 8 hrs as needed between meals. - GERD/acid reflex diet modification per handout andrew Not available 10/14/2023 17:41:57 01/16/2024 [id number] possible appendicitis: care instructions [email or web address] Not available 01/16/2024 11:49:58 Reason for Referral Emergency Medicine Referral for Right lower quadrant pain Referring Physician: Shea Wood, Urgent Care, Encounter Date: 01/16/2024 Results Created Date Observation Date Name Description Value Unit Range Abnormal Flag Note LastModifiedBy Organization Detail LastModifiedTime 01/16/2001/17/2024 URINE CULTU RENEE VARGAS urine culture, routine FINAL REPORT Not Available [facility] ([facility]) [address], [place], [address], 01/17/2024 22:05:50 01/16/2001/17/2024 URINE CULTU RE, ROUTI NE result 1 NO GROWTH Not Available [facility] ([facility]) [address], [place], [address], 01/17/2024 22:05:50 01/16/20 24 01/16/2024 urina lysis , dipst ick Unknown Analyte Normal = light yellow Not Available [address], [address], 01/16/2024 10:21:37 01/16/20 24 01/16/2024 urina lysis , dipst ick Unknown Analyte Irwin Not Available [address], [address], 01/16/2024 10:21:37 01/16/20 24 01/16/2024 urina lysis , dipst ick Unknown Analyte Normal = clear Not Available [address], [address], 01/16/2024 10:21:37 01/16/20 24 01/16/2024 urina lysis , dipst ick Unknown Analyte Clear Not Available [address], [address], 01/16/2024 10:21:37 01/16/20 24 01/16/2024 urina lysis , dipst ick Unknown Analyte Normal = negati ve Not Available [address], [address], 01/16/2024 10:21:37 01/16/20 24 01/16/2024 urina lysis , dipst ick Unknown Analyte Negati ve Not Available [address], [address], 01/16/2024 10:21:37 01/16/20 24 01/16/2024 urina lysis , dipst ick Unknown Analyte Normal = Negati ve Not Available [email or web address] ie [address] [place] [address], [address], 01/16/2024 10:21:37 01/16/20 24 01/16/2024 urina lysis , dipst ick Unknown Analyte Negati ve Not Available [facility] [[email or web address] ie [address] [place] [address], [address], 01/16/2024 10:21:37 01/16/20 24 01/16/2024 urina lysis , dipst ick Unknown Analyte Normal = Negati ve Not Available [email or web address] [address] [place] [address], [address], 01/16/2024 10:21:37 01/16/20 24 01/16/2024 urina lysis , dipst ick Unknown Analyte Negati ve Not Available [facility] [[email or web address] ie [address] [place] [address], [address], 01/16/2024 10:21:37 01/16/2001/16/2024 urina lysis , dipst ick Unknown Analyte Normal = 1.010, 1.015, 1.020 Not Available [facility] [[email or web address] ie [address] [place] [address], [address], 01/16/2024 10:21:37 01/16/20 24 01/16/2024 urina lysis , dipst ick Unknown Analyte 1.030 Not Available [facility] [address] [place] [address], [address], 01/16/2024 10:21:37 01/16/20 24 01/16/2024 urina lysis , dipst ick Unknown Analyte Normal = Negati ve Not Available [email or web address] ie [address] [place] [address], [address], 01/16/2024 10:21:37 01/16/20 24 01/16/2024 urina lysis , dipst ick Unknown Analyte Negati ve Not Available [email or web address] [address] [place] [address], [address], 01/16/2024 10:21:37 01/16/20 24 01/16/2024 urina lysis , dipst ick Unknown Analyte Normal = 6.5, 7.0, 7.5, 8.0 Not Available [email or web address] [address] [place] [address], [address], 01/16/2024 10:21:37 01/16/20 24 01/16/2024 urina lysis , dipst ick Unknown Analyte 5.5 Not Available [facility] [address], [address], 01/16/2024 10:21:37 01/16/20 24 01/16/2024 urina lysis , dipst ick Unknown Analyte Normal = Negati ve Not Available [email or web address] [address] [place] [address], [address], 01/16/2024 10:21:37 01/16/20 24 01/16/2024 urina lysis , dipst ick Unknown Analyte Negati ve Not Available [email or web address] [address] [place] [address], [address], 01/16/2024 10:21:37 01/16/20 24 01/16/2024 urina lysis , dipst ick Unknown Analyte Normal = 0.2, 1.0 Not Available [email or web address] [address] [place] [address], [address], 01/16/2024 10:21:37 01/16/20 24 01/16/2024 urina lysis , dipst ick Unknown Analyte 0.2 E.U./d L Not Available [email or web address] ie [address] [place], [address], 01/16/2024 10:21:37 01/16/20 24 01/16/2024 urina lysis , dipst ick Unknown Analyte Normal = Negati ve Not Available [email or web address] [address] [place] [address], [address], 01/16/2024 10:21:37 01/16/20 24 01/16/2024 urina lysis , dipst ick Unknown Analyte Negati ve Not Available [facility] [address] [place] [address], [address], 01/16/2024 10:21:37 01/16/20 24 01/16/2024 urina lysis , dipst ick Unknown Analyte Normal = Negati ve Not Available [facility] [address] [place] [address], [address], 01/16/2024 10:21:37 01/16/20 24 01/16/2024 urina lysis , dipst ick Unknown Analyte Negati ve Not Available [email or web address] [address] [place] [address], [address], 01/16/2024 10:21:37 Result Notes None recorded. Problems Name Problem SNOMED Code Status Onset Date Resolution Date Notes Provider Name and Address Organization Details Recorded Time Gastroesophage al reflux disease 218254911 Active 2022 DRE smith PA - [facility] 3 12:46:51 Migraine 31670952 Active 2022 DRE smith PA - [facility] 3 12:47:00 Right lower quadrant pain 215667008 Active 2023 Shea Wood NP [address] [facility] [address] [facility] [place], [address] [facility] PA - [facility] 4 11:48:49 Problem Notes None recorded. Medical Equipment None Reported. Allergies Allergen ID Allergen Name Allergen Category Reaction Reaction Severity Criticality Documentation Date Start Date Code Code System Note Provider Name and Address Organization Details Recorded Time 117017 ibuprofen medicatio n hives rash Not available Not available Not available 10/16/2022 5640 RxNorm KALPESH Camargo - [facility] 3 12:46:30 Medications Name Sig Start Date Stop Date Status Note LastModified by Organization Details LastModified Time venlafaxine ER 75 mg capsule,ext ended release 24 hr TAKE 1 CAPSULE BY MOUTH EVERY DAY WITH FOOD FOR 30 DAYS 10/16 completed Not Available Not Available Not Available Lidocaine Viscous 2 % mucosal solution Take 15 mL by oral route. 01/15 completed Not Available Not Available Not Available rizatriptan 10 mg tablet PLEASE SEE ATTACHED FOR DETAILED DIRECTION S 01/15 completed Not Available Not Available Not Available omeprazole 40 mg capsule,del ayed release TAKE 1 CAPSULE BY MOUTH EVERY DAY 10/13 completed Not Available Not Available Not Available famotidine 20 mg tablet Take 1 tablet twice a day by oral route. 01/15 completed Not Available Not Available Not Available diphenhydra mine 50 mg/mL injection solution Take 50 mL by injection route. 10/13 completed Not Available Not Available Not Available amitriptyli ne 10 mg tablet TAKE 1 TABLET BY MOUTH EVERYDAY AT BEDTIME 10/16 completed Not Available Not Available Not Available ropinirole 0.5 mg tablet TAKE 1 TABLET ORALLY BEFORE SLEEP 30 DAYS 10/16 completed Not Available Not Available Not Available Vitamin B-2 50 mg tablet 01/15 completed Not Available Not Available Not Available ketorolac 60 mg/2 mL intramuscul ar solution Inject 2 mL by intramusc ular route. 10/13 completed Not Available Not Available Not Available topiramate 100 mg tablet TAKE 1 TABLET BY MOUTH AT BEDTIME 10/16 completed Not Available Not Available Not Available magnesium 250 mg (as magnesium oxide) tablet TAKE 1 TABLET BY MOUTH TWICE A DAY 01/15 completed Not Available Not Available Not Available Antacid-Ant igas 200 mg-200 mg-20 mg/5 mL oral suspension Take 10 mL by oral route. 01/15 completed Not Available Not Available Not Available Vitals Date Recorded Body height Body mass index (BMI) Body weight Respiratory rate Oxygen saturation Oxygen saturation in Arterial blood by Pulse oximetry Heart rate Body temperature Systolic blood pressure Diastolic blood pressure Provider Name and Address Organization Details Last Updated DateTime 3 182.88 cm 40.7 kg/m2 815884. 71 g 17 /min 100 % 100 % 64 /min 98.3 [degF] 112 mm[Hg] 77 mm[Hg] DRE ABDI [facility] 3 12:48:28 Date Recorded Body height Body mass index (BMI) Body weight Respiratory rate Body temperature Oxygen saturation Oxygen saturation in Arterial blood by Pulse oximetry Heart rate Systolic blood pressure Diastolic blood pressure Provider Name and Address Organization Details Last Updated DateTime 4 177.8 cm 42.3 kg/m2 906698. 75 g 17 /min 98.4 [degF] 100 % 100 % 75 /min 123 mm[Hg] 81 mm[Hg] Reyna CHIN [facility] 4 17:03:25 Date Recorded Body height Body mass index (BMI) Body weight Body temperature Oxygen saturation Oxygen saturation in Arterial blood by Pulse oximetry Heart rate Respiratory rate Systolic blood pressure Diastolic blood pressure Provider Name and Address Organization Details Last Updated DateTime 4 182.88 cm 38 kg/m2 969419. 86 g 98.4 [degF] 98 % 98 % 59 /min 12 /min 107 mm[Hg] 72 mm[Hg] Cam Cowart [facility] 4 10:24:00 Social History Question Answer Notes LastModified by Organizat ion Details LastModified Time Tobacco Smoking Status Former Smoker Reyna smith PA Joshua [facility] 10/14/2023 17:01:25 Which Illicit Or Recreational Drugs Have You Used? Marijuana Information not available 10/16/2022 When Did You Quit Smoking? 1-5yearssince lastcigarette Quit 1 Year Ago Information not available 01/16/2024 Have You Had A Flu Shot This Season? No Information not available 10/14/2023 If No, Would You Like A Flu Shot Today? No Information not available 10/14/2023 Have You Had Direct Contact, Or Contact During Intimacy, With Monkeypox Rash, Scabs, Or Body Fluids From A Person With Monkeypox? No Information not available 10/14/2023 What Was The Date Of Your Most Recent Tobacco Screening? 01/16/2024 Information not available 01/16/2024 Have You Recently Traveled Abroad? No [email or web address] Information not available 10/16/2022 Sex: Unknown Functional Status Question Answer Note LastModified by Organizat ion Details LastModified Time Do you use any illicit or recreational drugs? Yes Information not available 10/16/2022 Do you or have you ever used any other forms of tobacco or nicotine? No [email or web address] Information not available 10/16/2022 What is your level of alcohol consumption? Occasional rarely Information not available 01/16/2024 Mental Status None recorded. Family History Relationship Description Onset Age of this Age Resolved Age Notes LastModified by Organization Details LastModified Time Father No current problems or disability [email or web address] Not available 10/16 12:47:14 Mother No current problems or disability [email or web address] Not available 10/16 12:47:14 Medical History No medical history recorded. Immunizations Vaccine Type Date Status Note Provider Nam e and Address Organization Details Recorded Time Tdap 2 completed Reyna smith, PA - [facility] 10/14/2023 16:56:15 Td(adult) unspecified formulation 0 completed Isha smith, PA - [facility] 01/16/2024 10:00:12 Tdap 8 completed Isha Maier null, PA - [facility] 01/16/2024 10:00:12 Hep B, unspecified formulation 0 completed Isha smith, PA - [facility] 01/16/2024 10:00:12 Hep B, adult 8 completed Isha smith, PA - [facility] 01/16/2024 10:00:12 Hep B, adult 8 completed KALPESH Berkowitz - [facility] 01/16/2024 10:00:12 Past Encounters Encounter ID Performer Location Encounter Start Date Encounter Closed Date Diagnosis/Indication Diagnosis SNOMED-CT Code Diagnosis ICD10 Code Diagnosis Note [id number] [address] [facility] [address] [place] [address] 09/21/2018 14:06:47 09/21/2018 14:29:09 [id number] [facility] [address] [place] [address] 03/06/2018 16:50:00 03/06/2018 17:35:42 [id number] [facility] [address] [address] 04/19/2018 16:10:32 04/19/2018 17:18:49 [id number] [facility] [address] 03/21/2018 16:44:51 03/21/2018 17:22:00 [id number] 2099_[facility] [address] [address] [address] 06/21/2018 09:35:57 06/21/2018 10:46:26 [id number] [address] [place] [address] 09/10/2020 12:14:16 09/10/2020 13:33:27 [id number] MARÍA CURRY MD [address] [place] [address] 10/16/2022 12:09:16 10/16/2022 15:30:43 Muscle spasm of cervical muscle of neck 1920232724 04 M62.838 Patient requesting the NSAID for pain relief here, even with the risk of getting hives. He accepts the plan to get Benadryl first then get the NSAID. He will be observed for at least 15 minutes. [id number] MARC ECHEVERRIA [place] [facility] [address] [place] [address] 10/14/2023 16:55:34 10/14/2023 17:44:18 Gastroesophageal reflux disease 728539120 K21.9 Presented for worsening GERD symptoms. Prescribed Magnesium for the ?GERD on Tuesday by PCP office and now with worsening epigastric pain and new diarrhea. Given GI cocktail with resolution of his pain c/w GERD. [id number] Shea Wood NP [address] [address] [place] [address] 01/16/2024 09:46:06 01/16/2024 11:54:38 Right lower quadrant pain 754478833 R10.31 Based on your history and presentati on - you have Acute Abdominal Pain. We are limited in our diagnostic capabiliti es in our center and feel that it would be best to go to the Emergency Room. Based on your presentati on it would be best to have access to lab work and advanced imaging, if the physician would feel that would be indicated based on your History and Presentati on. These things are typically necessary to give you an accurate diagnosis to what is causing your pain. Abdominal condition do that the risk of having significan t complicati ons if not diagnosed and treated appropriat osman. This may include sepsis or . Differenti al: Diverticul itis, Appendicit is, C-diff, Gastroente ritis, Medication Side Effect Health Concerns Section Related Observation LastModified by Organization Detai ls LastModified Time None Recorded Concern Status LastModified by Organization Details LastModified Time None Recorded Advance Directives Directive None Recorded Payers Insurance Date Sequence Insurance Name Policy Number Policy Corea Covered Member ID Corea Member ID Guarantor Name 01/16/2024 1 [facility] (MEDICAID HMO) [facility] Houston Kelley [id number] Houston Kelley 01/16/2024 1 [place] [facility] Houston Kelley [id number] Houston Kelley 01/16/2024 1 [employer] - [facility] (MEDICAID REPLACEMENT - HMO) MARJ Houston Kelley [id number] Houston Kelley Notes Date Note Type Note Provider Name and Address Organization Details Recorded Time 10/16/2022 text/html 36 y.o male post al carrier presenting with a painful stiff neck this am. He denies any recent trauma, infection, or stressful life event. He has had no fever, no sore throat. earache, headache, abdominal pain, n/v/d or rashes on his body. MARÍA CURRY MD [address] [place], [address], [place] [employer] [facility] 10/16/2022 16:10:50 10/14/2023 text/html Reflux / GERDReported bypatient.Notes:Kalpesh hidalgo with history of GERD. Now with worsening epigastic pain. Was taking omeprazole 20 and then 40 mg without benefit. Seen at PCP office on 10/10/23 for the GERD and prescribed Magnesium, patient showed the bottle in clinic . Since then, he has worsening epigastric pain associated now with diarrhea. Feels nausea and has decreased PO tolerance. Has been avoiding acidic/spicy food. Minimal soda or coffee. MARC ECHEVERRIA MD [address] [place], [address], [employer] [facility] [employer] [facility] 10/14/2023 18:04:29 01/16/2024 text/html Abdominal Pain UCReported bypatient.source of patient informationpatient ; Patient arrived at Urgent Care ambulatory Location:LLQ; RLQ; suprapubic Quality:pain;sharp ;stabbing Severity:moderate; pain level 6/10 Duration:constant Onset/Timing:worse Context:no travel; food; lifting Modifying Factors:laying down Associated Symptoms:no fever; no chills; no blood in the urine; no heartburn; no shortness of breath;change in bladder/bowel habits 38 YOM c/o lower abdominal pain both side sharp px with constipation initially , then had first BM yesterday , after 2 days of no BM , it was hard followed by diarrhea x1. increase urinating and small amount being voided lower back pain x 3 days worsening. but has not been taking in too much fluid either . 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 Shea Wood NP [address] [place], [address], [place] [employer] [facility] 01/16/2024 11:57:21
== END 2024-09-24 12:12 | disposition home or self-care (01) ==
LOC: HO.HMCH 11:28
PROVIDERS: PCP Physician Assistant; Visit Provider Physician Assistant
DX: Z00.00 Encounter for general adult medical examination without abnormal findings (principal); G47.33 Obstructive sleep apnea (adult) (pediatric); E66.813 Obesity, class 3; Z68.41 Body mass index [BMI] 40.0-44.9, adult; M54.16 Radiculopathy, lumbar region

== ENCOUNTER → 2024-09-24 11:27 | Outpatient (BNVA) | payer OTHER, SELFPAY | PROVIDERS: PCP Physician Assistant; Visit Provider Physician Assistant | DX: Z00.00 Encounter for general adult medical examination without abnormal findings (principal); G47.33 Obstructive sleep apnea (adult) (pediatric); M54.16 Radiculopathy, lumbar region; E66.813 Obesity, class 3; Z68.41 Body mass index [BMI] 40.0-44.9, adult; K21.9 Gastro-esophageal reflux disease without esophagitis; F41.8 Other specified anxiety disorders; H53.9 Unspecified visual disturbance; G44.84 Primary exertional headache; G25.81 Restless legs syndrome; G47.9 Sleep disorder, unspecified | CPT/HCPCS: 96127; 99202; 99395 ==

== ENCOUNTER 2024-09-24 13:33 | Outpatient (AMB) | payer OTHER, SELFPAY ==
[2024-09-24 13:38] VITALS: BP 140/78; PULSE 72; O2SAT 97; BMI 45.6
--- NOTE | 2024-09-24 13:38 | MHC.OFFVIS ---
Vital Signs 09/24/24 13:38 Height 5 ft 10 in Weight 318 lb BMI 45.6 BP 140/78 H Blood Pressure Location Rt brachial Position Sitting Pulse 72 Pulse Source Pulse Oximeter Pulse Oximetry (%) 97 Oxygen Delivery Method Room Air Intake Visit Reasons: INP-Migraines(LVM TO R/S) Intake Note: Migraines [employer] Technician Required: No Accompanied by: Self / Same As Patient Allergies ibuprofen [From MOTRIN] Allergy (Unknown, Verified 09/24/24 15:13) HIVES Medication List - Last Reconciled 09/24/24 by Gricel Ruiz, HV[employer] SALES REPRESENTATIVE sucralfate (Carafate) 10 mL PO TID 30 days HPI Comments Details: Right-handed 38-yr-old male presents for new pt evaluation of headache disorder. Pt reports he has had migraine headache, not as severe, as early as age 10. Denies any preceding infections, injuries. Overtime, starting in adolescence but worsened further approx 5 years ago, the migraine attacks have gradually worsened to the point where he just wants to shut the world off. He previously saw neurology, last time approx 4-5 yrs ago. He notes he is not found of taking medications. PMH and ROS are notable for:? General: denies any specific concerns. HEENT: photophobic Musculoskeletal disorders or injury: Lower back injury- slipped L5 disc w/ sciatica s/p work place injury History of concussion/head injury: denies Mood d/o: Anxiety, Depression, PTSD. Prone to ruminating thoughts- Mother recently dx'd w/ breast CA. Respiratory d/o: EDWINA- not on CPAP- see below CV disease: denies Clotting or hematology d/o: denies any d/o's, denies h/o sickle cell anemia or sickle cell trait, however review of labs show h/o anemia. Endocrine or metabolic d/o: denies History of seizure: denies History of syncope: denies : denies GI d/o: GERD Family history of migraine or other headache disorder: mother. Lifestyle considerations: Sleep routine: Usual bedtime: varies, 10-11pm or 1-2am and wake-up time: 5-6am or 10am. Sleep difficulties: Endorses: EDWINA- not on CPAP, states he thinks he is breathing well, able to fall asleep but wakes up frequently and cannot stop thinking. Restless legs when ever he sits too long- urge to move and tap his legs, creepy crawling/tingling sensation/numbing, need to tap his legs, leg cramps at rest. He is unsure if has a family history of RLS, however he states his mother never sits still. Caffeine use: 1 cup of coffee in the am, or a soda at dinner Substance use: Marijuana- daily 2-3 times a day- uses for anxiety/sleep, Alcohol- social Exercise:?Very little. But active during the day. 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 Family planning: none. No current children. Headache questionnaire:? Age/time of onset: age 10 Preceding causes: known Previous work-up: Head MRI/CT- unremarkable. Types of headache disorders: He states he has 1 headache, which has varying intensities. Typical headache characteristics: Prodrome symptoms: Feels tension in the back of his eyes and bilateral nose starts to run- a few minutes before the attack. Aura: Sees a bright colorful orb. Pain intensity: severe Location, quality, characteristics: Moves into bilateral occipital or frontal throbbing headache. Stabbing pain in the temples and back of neck. Associated symptoms: bilateral tearing/swelling, redness, photophobia, phonophobia, osmophobia, allodynia, nausea, vomiting, spinning dizziness, not right in space dizziness, at times lightheadedness, some fatigue, cognitive difficulties, irritability, activity intolerance during mild-moderate headache. When more severe, cannot sit still, and might want to hit his head. Postdrome: Feels numbness in arms/legs- feels this is to hold his body in tension during the headache phase. Triggers: poor fluid intake, hunger, lights, sounds, odors, poor sleep, stress, weather changes, heat. Occasionally has sudden onset of typical migraine upon picking up a heavy object- such as a pallet. Time of day: During the day. Duration and Frequency: 3-4 times per week, lasts hours. Rarely lasts 1-2 days. How does headache impact your life? When working, he has had to call out of work. Current acute medication use/interventions: Tries to fight it off. Current preventative medication use: None Current non-pharmacological interventions: Ice. Notes heat application is aggravating. PFSH Medical History No known health problems Family History Mother Breast cancer Chronic migraine with aura Social History Housing: House Alcohol intake: never Patient Tobacco Use Status: Never used Tobacco e-Cigarette/Vaping Use: Currently Using Substance Use Type: Marijuana service: No Current occupational status: unemployed Cognitive needs: No Hearing needs: No Vision needs: No Physical Exam Vital Signs: Last Vital Signs Pulse 72 09/24/24 13:38 BP 140/78 H 09/24/24 13:38 Pulse Ox 97 09/24/24 13:38 Oxygen Delivery Method Room Air 09/24/24 13:38 BMI result Body Mass Index 45.6 Const Orientation/consciousness: patient oriented x3 Resp Effort & Inspection: normal respiratory effort and able to speak in complete sentences Neuro Other: Marked photophobia. Initially wearing dark sunglasses, however photophobia reduced w/ application of FL-41 blue light filtering glasses. Unable to complete EOM- cuases unwell feeling. Bilateral trochlear notch and supra-orbital notch tenderness. Bilateral TMJ crepitus w/o joint displacement. Mild signs of lower frontal teeth wearing. Mallampati stage IV. Bilateral posterior cervical tightness. Cervical ROM: mildly limited in extension w/o discomfort. Left Spurling: normal Right Spurling: normal. BUE MS: 5/5 RLE MS: 5/5 LLE MS 5-/5- pt states baseline s/p lumbar spine injury. General: patient oriented x3 Cranial nerves: Yes CN's II-XII intact bilaterally Cognition (Neuro): normal cognition Gait exam (Neuro): Normal gait present Motor exam (neuro): 5/5 motor strength present throughout Deep tendon reflexes (DTR's): Right triceps reflex intensity grade: 2+, Left triceps reflex intensity grade: 2+, Rt Biceps (C5, C6): 2+, Left biceps reflex intensity grade: 2+, Right brachioradialis reflex intensity grade: 2+, Left brachioradialis reflex intensity grade: 2+, Right patellar reflex intensity grade: 2+ and Left patellar reflex intensity grade: 2+ Coordination: [id number] test normal, tandem gait normal and Romberg test negative Pupils: Normal pupillary reactivity/response: bilateral Psych Appearance: grossly normal Mental Status: mental status grossly normal Speech and movement: Normal speech and movement present Affect: normal affect Attitude: cooperative Thought process: Normal thought process present Assessment & Plan Assessment & Plan (1) Worsening headaches: Comment: Differential includes suboptimally managed migraine with aura, concurrent trigeminal autonomic cervicalgia headache such as cluster headache, secondary headache Code(s): R51.9 - Headache, unspecified Category: Medical (2) Visual aura: Code(s): H53.9 - Unspecified visual disturbance Category: Medical (3) Exertional headache: Code(s): G44.84 - Primary exertional headache Category: Medical (4) Restless leg syndrome: Code(s): G25.81 - Restless legs syndrome Category: Medical (5) EDWINA (obstructive sleep apnea): Code(s): G47.33 - Obstructive sleep apnea (adult) (pediatric) Category: Medical (6) Sleep difficulties: Comment: Patient reports this is due to fragmented sleep and ruminating thoughts- ? Exacerbated by untreated EDIWNA and RLS. Code(s): G47.9 - Sleep disorder, unspecified Category: Medical Plan Pt advised to undergo: Brain MRI w/wo and Brain MRA w/o to assess for secondary etiologies of worsening headache, w/ autonomic s/s of watery eyes, runny nose, residual paresthesias, restlessness, and exertional headaches. Labs to assess for underlying etiologies of worsening headaches and RLS s/s. For EDWINA, RLS, and sleep difficulties in setting of anemia: Will request in-lab PSG results- pt believes was done at [facility]. Check labs as above Pt may benefit from reading navigating life with restless leg syndrome by Dr Mccarthy. Future considerations: resuming PAP tx. For overall headache management: Optimize good self-care, including but not limited to maintaining a healthy diet, adequate fluid intake, adequate sleep, and engaging in regular physical activity. Track headaches, especially after any treatment regimen changes. Migraine [employer] is one of many headache tracking apps. Advised to intentionally look in the mirror during his headache attacks that are causing restlessness, to assess for any facial asymmetry, facial weakness. Information shared on non-pharmacological interventions which may help to alleviate headache attack burden. For light sensitivity: Patient may benefit from trying blue light filtering glasses, green glasses, green light therapy. Avoiding wearing sunglasses inside. For sound sensitivity: Patent may benefit from trying noise cancellation ear plugs. Neuromodulation devices, which can be used alone or with pharmacological treatment. Trial wearing an OTC mouth guard. For acute headache treatment: Discussed importance of taking acute medications at the first sign of headache, however stressed importance of avoiding acute medication overuse (especially with combined headache medications). Trial Sumatriptan 100mg tab, 1/2 - 1 tab (50-100mg) at onset of headache, may repeat in 2 hours. Max of 2 tabs (200mg) per 24 hours. May take sumatriptan with OTC Tylenol 650-1,000mg every 4-6 hours as needed. Potential adverse effects of triptans, include but are not limited to nausea, fatigue, chest tightness/tingling (usually passes within a few minutes), medication overuse headaches. Previous acute migraine medication trials: Sumatriptan- ineffective. Acute migraine medication contraindications: NSAIDs d/t allergies For headache prevention medication: Preventative medications should be taken routinely as prescribed for best effect, it may take several weeks for full effect to take effect. Start Riboflavin 400mg qam Start Magnesium 400mg qhs Previous migraine prevention medication trials: Amitriptyline- not effective x's 1 wk. Migraine prevention medication contraindications: None at this time- however pt is wary to take too many medications. Written instructions given to pt. Will follow-up upon review of above and patient to follow-up in clinic in 2-3 months or sooner prn. Orders: Orders TSH reflex Free T4 09/24/24 D64.9 - Anemia, unspecified, E66.01 - Morbid (severe) obesity due to excess calories, F41.1 - Generalized anxiety disorder, Z68.41 - Body mass index [BMI] 40.0-44.9, adult IRON PROFILE 09/24/24 D64.9 - Anemia, unspecified, E66.01 - Morbid (severe) obesity due to excess calories, F41.1 - Generalized anxiety disorder, Z68.41 - Body mass index [BMI] 40.0-44.9, adult Ferritin 09/24/24 D64.9 - Anemia, unspecified, E66.01 - Morbid (severe) obesity due to excess calories, F41.1 - Generalized anxiety disorder, Z68.41 - Body mass index [BMI] 40.0-44.9, adult Vitamin D 25-OH (D2 and D3) 09/24/24 D64.9 - Anemia, unspecified, E66.01 - Morbid (severe) obesity due to excess calories, F41.1 - Generalized anxiety disorder, Z68.41 - Body mass index [BMI] 40.0-44.9, adult Hemoglobin A1c 09/24/24 E66.01 - Morbid (severe) obesity due to excess calories, Z13.1 - Encounter for screening for diabetes mellitus, Z68.41 - Body mass index [BMI] 40.0-44.9, adult MR angio head wo con 09/24/24 G44.84 - Primary exertional headache, H04.203 - Unspecified epiphora, bilateral, H53.9 - Unspecified visual disturbance, R09.89 - Other specified symptoms and signs involving the circulatory and respiratory systems, R51.9 - Headache, unspecified Vitamin B12 and Folate 09/24/24 D64.9 - Anemia, unspecified, E66.01 - Morbid (severe) obesity due to excess calories, F41.1 - Generalized anxiety disorder, Z68.41 - Body mass index [BMI] 40.0-44.9, adult C Reactive Protein 09/24/24 D64.9 - Anemia, unspecified, E66.01 - Morbid (severe) obesity due to excess calories, F41.1 - Generalized anxiety disorder, Z68.41 - Body mass index [BMI] 40.0-44.9, adult Complete Blood Count Auto Diff 09/24/24 D64.9 - Anemia, unspecified, E66.01 - Morbid (severe) obesity due to excess calories, F41.1 - Generalized anxiety disorder, Z68.41 - Body mass index [BMI] 40.0-44.9, adult Comprehensive Met. Panel 09/24/24 D64.9 - Anemia, unspecified, E66.01 - Morbid (severe) obesity due to excess calories, F41.1 - Generalized anxiety disorder, Z68.41 - Body mass index [BMI] 40.0-44.9, adult Magnesium 09/24/24 D64.9 - Anemia, unspecified, E66.01 - Morbid (severe) obesity due to excess calories, F41.1 - Generalized anxiety disorder, Z68.41 - Body mass index [BMI] 40.0-44.9, adult MR head/brain wo/w con 09/24/24 G44.84 - Primary exertional headache, H04.203 - Unspecified epiphora, bilateral, H53.9 - Unspecified visual disturbance, R09.89 - Other specified symptoms and signs involving the circulatory and respiratory systems, R51.9 - Headache, unspecified Medications: New sumatriptan succinate 50 - 100 mg orally at onset of headache, may repeat in 2 hrs PRN; max 2 tabs per day or 4 tabs/week (may take with Tyenol) 12 tabs 6RF migraine headache 30 days riboflavin (vitamin B2) 400 mg PO DAILY 30 tabs 6RF 30 days magnesium oxide may hold for loose stools 400 mg PO BEDTIME 30 tabs 6RF 30 days Coding Level of Care Code New Pt Level 4 (55086) Diagnoses Worsening headaches R51.9 Visual aura H53.9 Exertional headache G44.84 Restless leg syndrome G25.81 EDWINA (obstructive sleep apnea) G47.33 Sleep difficulties G47.9
== END 2024-09-24 14:55 | disposition home or self-care (01) ==
LOC: HO.HSMS 13:33
PROVIDERS: PCP Physician Assistant; Visit Provider Nurse Practitioner Family
DX: G44.84 Primary exertional headache (principal); H53.9 Unspecified visual disturbance; G25.81 Restless legs syndrome; G47.33 Obstructive sleep apnea (adult) (pediatric)
CPT/HCPCS: 99204